=== PATIENT | female | born 1990 | race African-American/Black ===

== ENCOUNTER 2019-09-20 13:28 | Emergency (ER) | payer OTHER ==
[2019-09-20 13:37] VITALS: BMI 28.3
--- NOTE | 2019-09-20 14:13 | PDOC ---
Attending Attestation - Resident Resident Name: Lashonda Galicia - ED Attending Attestation I have performed the following: I have examined & evaluated the patient, The case was reviewed & discussed with the resident, I agree w/resident's findings & plan, Exceptions are as noted - HPI HPI: 29 yo currently approximately 6 WGA presents with vaginal bleeding, lower abdominal cramping. Denies LH, syncope. No prior similar symptoms. Prior pr egnancies were uncomplicated. - Physicial Exam PE: GENERAL: Awake, alert, and fully oriented. Anxious HEAD: No signs of trauma EYES: PERRLA, EOMI, sclera anicteric, conjunctiva clear ENT: Auricles normal inspection, hearing grossly normal, nares patent, oropharynx clear without exudates. Moist mucosa NECK: Normal ROM, supple, no lymphadenopathy, JVD, or masses LUNGS: Breath sounds equal, clear to auscultation bilaterally. No wheezes, and no crackles HEART: Regular rate and rhythm, normal S1 and S2, no murmurs, rubs or gallops ABDOMEN: Soft, nontender, normoactive bowel sounds. No guarding, no rebound. No masses EXTREMITIES: Normal range of motion, no edema. No clubbing or cyanosis. No cords, erythema, or tenderness NEUROLOGICAL: Cranial nerves II through XII grossly intact. Normal speech, normal gait. Motor and sensation intact SKIN: Warm, dry, normal turgor, no rashes or lesions noted. : +Heavy vaginal bleeding - Medical Decision Making Pt with heavy first trimester bleeding. Will obtain labs, sono. Suspected miscarriage in progress. Discharge - Discharge Information Problems reviewed: Yes Clinical Impression/Diagnosis: Threatened in first trimester Condition: Stable Disposition: HOME - Follow up/Referral - Patient Discharge Instructions Patient Printed Discharge Instructions: DI for Threatened Additional Instructions: You were seen in the Emergency Department for vaginal bleeding during . Lab work was with normal limits. An ultrasound was performed. You were given a copy of the reports to show your doctor. Follow-up with your joint finisher at your already scheduled follow-up appointment. Your workup is not complete until you do so. You can take [id number] tylenol as needed for pain. Follow the instructions on the medication bottle. Make sure you do not take too much medicine. The maximum daily dose for tylenol is 4000mg/day. Return to the Emergency Department if you experience: -heavy bleeding (more than two pads per hour for two hours) -severe pain -lightheadedness -shortness of breath -high fever -any other concerning symptoms - Post Discharge Activity
[2019-09-20] MEDS ORDERED: SODIUM CHLORIDE 0.9% 500 ML INFUS.BAG IV ONE (14:21)
[2019-09-20 14:34] LABS: BASO % 0.6 % (0-2.0); EOS % 1.7 % (0-4.5); HEMATOCRIT 44.3 % (32.4-45.2); HEMOGLOBIN 14.8 GM/dL (10.7-15.3); LYMPH % 44.7 % (8-40); MCH 30.8 pg (25.7-33.7); MCHC 33.5 g/dl (32.0-36.0); MEAN CELL VOLUME 91.9 fl (80-96); MEAN PLT VOLUME 7.7 fl (7.5-11.1); MONO % 6.2 % (3.8-10.2); NEUT % 46.8 % (42.8-82.8); PLATELET COUNT 425 K/MM3 (134-434); RBC 4.82 M/mm3 (3.60-5.2); RDW 14.4 % (11.6-15.6); WHITE BLOOD COUNT 15.1 K/mm3 (4.0-10.0)
[2019-09-20 14:42] LABS: INR 1.08 (0.83-1.09); PROTHROMBIN TIME (PATIENT) 12.7 SEC (9.7-13.0)
--- NOTE | 2019-09-20 14:46 | PDOC ---
History of Present Illness - General Chief Complaint: Vaginal Bleeding Stated Complaint: VAGINAL BLEEDING Time Seen by Provider: 09/20/19 14:04 - History of Present Illness Initial Comments: HPI: 29yo A0 currently ~6 weeks by b-hcg level (LMP 06/08/2019) presenting with vaginal bleeding and lower abdominal cramping. Patient reports vaginal spotting that started last week. She was evaluated by an urgent care which showed what sounds like an intrauterine but no heartbeat and the patient was told that it may be because the was too early. Has not followed with an travel freight and passenger agent for this . Bleeding increased significantly last night with the passage of clots. Patient also reporting intermittent cramping abdominal pain today. Has not taken anything for her pain. No fevers, chills, chest pain, or shortness of breath. 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 ROS: Constitutional: no fever, no chills HEENT: no throat pain, no dysphagia Cardiovascular: no chest pain, no palpitations Respiratory: no cough, no shortness of breath Gastrointestinal: +abdominal pain, no constipation Genitourinary: no dysuria, +vaginal bleeding Musculoskeletal: no myalgia, no arthralgia Skin: no rash, no itching Neurologic: no headache, no weakness Psych: no agitation, no anxiety PE: General: Awake, alert, and fully oriented, in no acute distress Head: No signs of trauma Eyes: EOMI, sclera anicteric ENT: Moist mucus membranes Neck: Normal ROM, supple Lungs: Lungs clear, Normal breath sounds Cardio: Regular rhythm, S1 and S2 present Abdomen: Soft, nontender. No guarding, no rebound, no masses. No CVA tenderness Extremities: Normal range of motion, Distal pulses present Skin: Warm, Dry, normal turgor Neurologic: Cranial nerves II through XII grossly intact. Normal speech Pelvic: External genitalia without erythema, exudate or discharge. Vaginal vault is with significant blood and clots. The cervical os is open. Uterus is noted to be of appropriate size and nontender. No cervical motion tenderness is seen. No masses are palpated. The adnexa are without masses or tenderness. Biology Specimen Technician, Nurse Jarod, present during entire pelvic exam ED Course/MDM: DDX including but not limited to threatened , ectopic , subchorionic hemorrhage, UTI, cervical/vaginal lesion, thrombocytopenia Labs TVUS Tylenol 09/20/19 14:46 CBC WBC 15.1 K/mm3 (4.0-10.0) H 09/20/19 14:15 RBC 4.82 M/mm3 (3.60-5.2) 09/20/19 14:15 Hgb 14.8 GM/dL (10.7-15.3) 09/20/19 14:15 Hct 44.3 % (32.4-45.2) 09/20/19 14:15 MCV 91.9 fl (80-96) 09/20/19 14:15 MCH 30.8 pg (25.7-33.7) 09/20/19 14:15 MCHC 33.5 g/dl (32.0-36.0) 09/20/19 14:15 RDW 14.4 % (11.6-15.6) 09/20/19 14:15 Plt Count 425 K/MM3 (134-434) 09/20/19 14:15 MPV 7.7 fl (7.5-11.1) 09/20/19 14:15 Absolute Neuts (auto) 7.1 K/mm3 (1.5-8.0) 09/20/19 14:15 Neutrophils % 46.8 % (42.8-82.8) 09/20/19 14:15 Lymphocytes % 44.7 % (8-40) H 09/20/19 14:15 Monocytes % 6.2 % (3.8-10.2) 09/20/19 14:15 Eosinophils % 1.7 % (0-4.5) 09/20/19 14:15 Basophils % 0.6 % (0-2.0) 09/20/19 14:15 Nucleated RBC % 0 % (0-0) 09/20/19 14:15 Leukocytosis CMP Sodium 138 mmol/L (136-145) 09/20/19 14:15 Potassium 4.5 mmol/L (3.5-5.1) 09/20/19 14:15 Chloride 104 mmol/L (98-107) 09/20/19 14:15 Carbon Dioxide 25 mmol/L (21-32) 09/20/19 14:15 Anion Gap 8 MMOL/L (8-16) 09/20/19 14:15 BUN 5.1 mg/dL (7-18) L 09/20/19 14:15 Creatinine 0.7 mg/dL (0.55-1.3) 09/20/19 14:15 Est GFR (CKD-EPI)AfAm 133.81 09/20/19 14:15 Est GFR (CKD-EPI)NonAf 115.45 09/20/19 14:15 Random Glucose 106 mg/dL (74-106) 09/20/19 14:15 Calcium 9.2 mg/dL (8.5-10.1) 09/20/19 14:15 Total Bilirubin 0.5 mg/dL (0.2-1) 09/20/19 14:15 AST 37 U/L (15-37) 09/20/19 14:15 ALT 18 U/L (13-61) 09/20/19 14:15 Alkaline Phosphatase 72 U/L (45-117) 09/20/19 14:15 Total Protein 8.0 g/dl (6.4-8.2) 09/20/19 14:15 Albumin 4.0 g/dl (3.4-5.0) 09/20/19 14:15 Beta HCG, Quant 6886.0 mIU/ml 09/20/19 14:15 Electrolytes unremarkable Cr normal No transaminitis B-hcg 6886 UA without infection (contamination with 3+ blood) 09/20/19 15:29 Rh+; Rhogam is not indicated Pending ultrasound result 09/20/19 15:56 Patient back from US; without acute complaints Pending US report 09/20/19 16:17 TVUS as reported by radiology: " EXAM#: TYPE/EXAM: RESULT: [id number] US/TRANSVAGINAL US PREG Transvaginal obstetrical ultrasound Clinical information: vaginal bleeding, An elliptical shaped approximately 3 x 0.8 cm fluid structure is seen within the lower uterine segment probably representing a gestational sac. No associated yolk sac or embryonic pole is noted. There appears to be several thin intraluminal septations. No subchorionic implantation is seen. The endometrium is somewhat thickened measuring 1.5 cm. There is no discrete myometrial pathology. No free intraperitoneal fluid is noted. The right ovary appears unremarkable. A 1.4 cm left ovarian cyst/follicle is seen without intraluminal debris/blood. Impression: Probable anembryonic gestation/blighted ovum as noted above. Correlate with beta-hCG levels, and close follow-up sonography. Reported By: Tong Bowen MD 09/20/19 2404" Patient reports that her bleeding has lessened VS continue to be stable To follow up with travel freight and passenger agent; already has an appointment Return precautions To be discharged 09/20/19 16:52 Past History - Past Medical History Allergies/Adverse Reactions: Allergies Allergy/AdvReac Type Severity Reaction Status Date / Time No Known Allergies Allergy Verified 09/20/19 13:34 Home Medications: Ambulatory Orders NK [No Known Home Medication] 09/20/19 COPD: No - Psycho Social/Smoking Cessation Hx Smoking History: Current every day smoker Information on smoking cessation initiated: No Hx Alcohol Use: No Drug/Substance Use Hx: No *Physical Exam - Vital Signs Last Vital Signs Temp Pulse Resp BP Pulse Ox 98.8 F 72 18 110/67 99 09/20/19 13:34 09/20/19 13:34 09/20/19 13:34 09/20/19 13:34 09/20/19 13:34 ED Treatment Course - LABORATORY CBC & Chemistry Diagram: 09/20/19 14:15 09/20/19 14:15 - ADDITIONAL ORDERS Additional order review: Laboratory Results 09/20/19 14:15 PT with INR 12.70 INR 1.08 09/20/19 14:15 RBC 4.82 MCV 91.9 MCHC 33.5 RDW 14.4 MPV 7.7 Neutrophils % 46.8 Lymphocytes % 44.7 H Monocytes % 6.2 Eosinophils % 1.7 Basophils % 0.6 - RADIOLOGY Radiology Studies Ordered: Category Date Time Status TRANSVAGINAL US PREG [US] Stat Ultrasound 09/20/19 14:06 Ordered Discharge - Discharge Information Problems reviewed: Yes Clinical Impression/Diagnosis: Threatened in first trimester Condition: Stable Disposition: HOME - Follow up/Referral - Patient Discharge Instructions Patient Printed Discharge Instructions: DI for Threatened Additional Instructions: You were seen in the Emergency Department for vaginal bleeding during . Lab work was with normal limits. An ultrasound was performed. You were given a copy of the reports to show your doctor. Follow-up with your travel freight and passenger agent at your already scheduled follow-up appointment. Your workup is not complete until you do so. You can take [id number] tylenol as needed for pain. Follow the instructions on the medication bottle. Make sure you do not take too much medicine. The maximum daily dose for tylenol is 4000mg/day. Return to the Emergency Department if you experience: -heavy bleeding (more than two pads per hour for two hours) -severe pain -lightheadedness -shortness of breath -high fever -any other concerning symptoms - Post Discharge Activity
[2019-09-20] MEDS ORDERED: ACETAMINOPHEN 325 MG TABLET (FP) PO ONE (15:01)
[2019-09-20] MEDS ORDERED: ACETAMINOPHEN 325 MG TABLET (FP) ONE (15:04)
[2019-09-20 15:20] LABS: BILIRUBIN,TOTAL 0.5 mg/dL (0.2-1); BLOOD UREA NITROGEN 5.1 mg/dL (7-18); CALCIUM 9.2 mg/dL (8.5-10.1); CREATININE 0.7 mg/dL (0.55-1.3); POTASSIUM 4.5 mmol/L (3.5-5.1)
[2019-09-20 15:28] LABS: EPI CELLS 7 /HPF (0-5/HPF); HYALINE CASTS 0 /lpf (0-8); PH,URINE 6.5 (5.0-8.0); URINE APPEARANCE CLEAR; URINE BACTERIA 135 /hpf (NEGATIVE); URINE BILIRUBIN NEGATIVE (NEGATIVE); URINE COLOR YELLOW; URINE GLUCOSE (UA) NEGATIVE (NEGATIVE); URINE KETONE NEGATIVE (NEGATIVE); URINE LEUK ESTERASE NEGATIVE (NEGATIVE); URINE NITRITE NEGATIVE (NEGATIVE); URINE PROTEIN NEGATIVE (NEGATIVE); URINE RBC 258 /hpf (0-4); URINE UROBILINOGEN 0.2 mg/dL (0.2-1.0); URINE WBC 4 /hpf (0-5)
[2019-09-20 17:00] VITALS: BP 101/56; PULSE 79; TEMP 97.9
== END 2019-09-20 17:44 | disposition home or self-care (01) ==
LOC: JER 13:28
DX: O26.891 Other specified pregnancy related conditions, first trimester (principal); O20.0 Threatened abortion; Z3A.01 Less than 8 weeks gestation of pregnancy
CPT/HCPCS: 36415; 76817-TC; 80053; 81003; 84702; 85025; 85610; 86850; 86900; 86901; 87086; 99284-25